=== PATIENT | male | born 1985 | race Caucasian/White ===

== ENCOUNTER 2022-06-29 20:36 | Outpatient (CLI) | payer OTHER | END 2022-06-29 20:37 | disposition EMS.NT | LOC: EMS 20:36 | DX: I10 Essential (primary) hypertension (principal); F41.9 Anxiety disorder, unspecified ==

== ENCOUNTER 2022-06-30 09:53 | Emergency (ER) | payer OTHER ==
--- NOTE | 2022-06-30 11:06 | ED Physician Documentation ---
PD HPI DYSPNEA - Stated complaint Stated Complaint: HIGH BLOOD - Chief complaint Chief Complaint: Cardiac - History obtained from History obtained from: Patient - History of Present Illness Timing - onset: Yesterday (he states he was having regular fitness test and evaluation and had BP taken by Medic and it was elevated at 170 systolic. he was anxious about it and took it again a few times at home and it peaked at 190/110. He was feeling stressed at the time. It improved to 160s. He called Nurse advise line.) Associated symptoms: Anxiety (stressful day and was anxious about activities yesterday.). No: Fever, Cough, Chest pain / discomfort, Palpitations, Bilateral edema Similar symptoms before: No diagnosis (he states he has been told several times in the past that he BP is "pre-hypertensive" but not high enough to be on BP meds. He does take BP at home intermittently and it is often 140/90-[place] but can also be 125 systolic, so not always elevated.) Recently seen: Other (had bp taken by Medic during physical assessment yesterday and then he took it himself last night. Called Nurse Saranya and sami to be seen in ER today.) Review of Systems Constitutional: denies: Fever, Chills Nose: reports: Sinus pressure / pain (when his bp is elevated.). denies: Rhinorrhea / runny nose, Congestion Throat: denies: Sore throat Cardiac: denies: Chest pain / pressure (he exercises regulalry and has not had exertional cp nor dyspnea.), Palpitations Respiratory: denies: Cough GI: denies: Bloody / black stool Neurologic: denies: Focal weakness, Numbness, Difficulty speaking, Headache PD PAST MEDICAL HISTORY - Past Medical History Past Medical History: Yes Cardiovascular: None Respiratory: None Neuro: None Endocrine/Autoimmune: None GI: None : None HEENT: None Psych: Depression, Anxiety Musculoskeletal: None Derm: None - Past Surgical History Past Surgical History: Yes HEENT: Other - Present Medications Home Medications: Ambulatory Orders Medication Instructions Recorded Confirmed Losartan [Cozaar] 50 mg PO DAILY #30 tablet 06/30/22 - Allergies Allergies/Adverse Reactions: Allergies Allergy/AdvReac Type Severity Reaction Status Date / Time No Known Drug Allergies Allergy Verified 06/30/22 10:05 - Living Situation Living Situation: reports: With family Living Arrangement: reports: At home - Social History Does the pt smoke?: No Smoking Status: Never smoker Does the pt drink ETOH?: No ETOH Use: None Does the pt have substance abuse?: No - Immunizations Immunizations are current?: Yes PD ED PE NORMAL - Vitals Vital signs reviewed: Yes - General General: Alert and oriented X 3, No acute distress, Well developed/nourished - Neck Neck: Supple, no meningeal sign, No adenopathy - Cardiac Cardiac: RRR, No murmur - Respiratory Respiratory: No respiratory distress, Clear bilaterally - Abdomen Abdomen: Soft, Non tender - Derm Derm: Normal color, Warm and dry - Extremities Extremities: No edema, No calf tenderness / cord - Neuro Neuro: Alert and oriented X 3, No motor deficit, Normal speech Results - Vitals Vitals: Vital Signs - 24 hr 06/30/22 06/30/22 06/30/22 10:00 12:05 12:45 Temperature 37.1 C Heart Rate 74 59 L 57 L Respiratory 16 14 12 Rate Blood Pressure 150/96 H 133/79 H 123/79 O2 Saturation 96 98 99 Oxygen O2 Source Room air - Labs Labs: Laboratory Tests 06/30/22 06/30/22 06/30/22 12:03 12:03 12:03 WBC 5.8 RBC 4.50 L Hgb 14.3 Hct 42.6 MCV 94.7 H MCH 31.8 H MCHC 33.6 RDW 11.8 L Plt Count 288 MPV 9.0 Neut # (Auto) 3.5 Lymph # (Auto) 1.6 Griggs # (Auto) 0.6 Eos # (Auto) 0.0 Baso # (Auto) 0.0 Absolute Nucleated RBC 0.00 Nucleated RBC % 0.0 Sodium 137 Potassium 4.5 Chloride 101 Carbon Dioxide 26 Anion Gap 10.0 BUN 9 Creatinine 0.8 Estimated GFR (MDRD) 109 Glucose 93 Calcium 9.7 Total Bilirubin 1.0 AST 20 ALT 20 Alkaline Phosphatase 52 Total Protein 7.7 Albumin 4.5 Globulin 3.2 Albumin/Globulin Ratio 1.4 Lipase 35 TSH 1.48 PD Medical Decision Making - ED course Complexity details: reviewed results, considered differential (can check basic labs to ensure not diabetic, renal insuficiency, lytes abnormal nor anemia. ), d/w patient (had elevated bP yesterday that very much concerned him, though no particular symptoms other than feeling of pressure forehead. Has had it borderline/mild htn longer term and been told "pre-hypertensive" on routine exams. No urgency to start med right now, but likely will want Rx. ) ED course: he can follow up with PCP. Will likely be 2-3 weeks for appt. Meanwhile I gave Rx for basic low dose losartan, not that the bp needs urgent treating but it does sound like will end up on a med through PCP, and he could start it sooner if it makes him more comfortable. He feels some of the HTN stems from his being anxious regularly. Had been on Lexapro for that in the past without improvemnt, so not on meds for anxiety right now. I would defer any short term meds for anxiety to his pcp for ongoing eval of efficacy/side effects/etc. Departure - Departure Disposition: 01 Home, Self Care Clinical Impression: Elevated blood pressure reading Condition: Stable Record reviewed to determine appropriate education?: Yes Instructions: ED Hypertension Poss Follow-Up: NATHEN SUE MD [Primary Care Provider] - Prescriptions: Losartan [Cozaar] 50 mg PO DAILY #30 tablet Comments: Your basic blood count, electrolytes, kidney function and blood sugar are normal here. At this point I think waiting and see how your blood pressure does and following up with your primary care is reasonable. Take it once or twice daily over the next 7 to 10 days. If you find that your blood pressure is trending high or has higher peaks like last night, then go ahead and start losartan 50 mg daily which is a basic low- dose blood pressure medicine. Otherwise follow-up with your primary care regarding any medication for blood pressure and also to discuss potential medication for anxiety. I printed out your prescription did not send it to a pharmacy so you have showing us if you end up wanting to start it or not. Discharge Date/Time: 06/30/22 12:48
[2022-06-30 12:08] LABS: BASOPHILS % (AUTO) 0.7 %; EOSINOPHILS % (AUTO) 0.7 %; HCT - HEMATOCRIT 42.6 % (42.0-52.0); HGB - HEMOGLOBIN 14.3 g/dL (14.0-18.0); LYMPHOCYTES # (AUTO) 1.6 10^3/uL (1.5-3.5); LYMPHOCYTES % (AUTO) 27.4 %; MEAN CORPUSCULAR HEMOGLOBIN 31.8 pg (27.0-31.0); MEAN CORPUSCULAR HGB CONC 33.6 g/dL (32.0-36.0); MEAN CORPUSCULAR VOLUME 94.7 fL (80.0-94.0); MONOCYTES # (AUTO) 0.6 10^3/uL (0.0-1.0); NEUTROPHILS # (AUTO) 3.5 10^3/uL (1.5-6.6); NEUTROPHILS % (AUTO) 59.9 %; PLT - PLATELET COUNT 288 10^3/uL (130-450); RED CELL DISTRIBUTION WIDTH 11.8 % (12.0-15.0); WHITE BLOOD COUNT 5.8 x10^3/uL (4.8-10.8)
[2022-06-30 12:24] LABS: ALBUMIN 4.5 g/dL (3.2-5.5); ALBUMIN/GLOBULIN RATIO 1.4 (1.0-2.2); CALCIUM 9.7 mg/dL (8.5-10.3); CREATININE 0.8 mg/dL (0.6-1.2); POTASSIUM 4.5 mmol/L (3.5-5.0); TOTAL PROTEIN 7.7 g/dL (6.7-8.2)
[2022-06-30 12:45] VITALS: BP 123/79
== END 2022-06-30 12:48 | disposition home or self-care (01) ==
LOC: ED 09:53
DX: R03.0 Elevated blood-pressure reading, without diagnosis of hypertension (principal)
CPT/HCPCS: 36415; 80053; 82164; 83690; 84244; 84443; 85025; 99283; 99284

== ENCOUNTER 2023-12-14 06:33 | Outpatient (CLI) | payer OTHER ==
--- NOTE | 2023-12-14 11:53 | MRI Report ---
PROCEDURE: Brain WO INDICATIONS: PARESTHESIA OF SKIN TECHNIQUE: Noncontrast axial T1 spin echo, axial T2 fast spin echo, sagittal and axial FLAIR, coronal T2 fast sp in echo, axial gradient echo, axial diffusion and ADC through the brain. COMPARISON: None. FINDINGS: Image quality: Excellent. CSF Spaces: Basal cisterns are patent. No extra-axial fluid collections. Ventricles are normal in size and shape. Brain: No intracranial masses or hemorrhage. Thacker/white matter interface is normal. Brainstem appe ars normal. Diffusion-weighted images demonstrate no acute ischemic insult. No chronic ischemic ins ults. Normal intravascular flow voids are present. Skull and face: Calvarium has normal marrow signal. Orbits appear normal. Sinuses: There is a mucous retention cyst seen within the left maxillary sinus. The paranasal sinuses are otherwise unremarkable. No significant abnormal fluid can be seen within the mastoid air cells. IMPRESSION: Normal brain MRI for age, without a cause found for the patient's presenting symptoms. No findings of acute or subacute infarction are seen. No prior territorial infarction can be seen. To the limits of this noncontrast study, no findings of masses or mass effect can be seen. Reviewed by: Flash Nielson MD on 12/14/2023 10:52 AM DONOVAN Approved by: Flash Nielson MD on 12/14/2023 10:52 AM DONOVAN Station ID: [id number]
== END 2023-12-14 06:34 | disposition home or self-care (01) ==
LOC: DI 06:33
PROVIDERS: ATTEND Preventive Medicine Aerospace Medicine
DX: R20.2 Paresthesia of skin (principal); R41.3 Other amnesia